=== PATIENT | female | born 1980 | race Hispanic/Latino ===

== ENCOUNTER 2019-07-24 18:00 | Inpatient (IN) | payer MEDICAID, OTHER, SELFPAY ==
[2019-07-24] MEDS: Lactated Ringer's 1,000 ML IV SCH (19:44)
[2019-07-24 19:55] VITALS: BMI 33.1
[2019-07-24] MEDS ORDERED: Promethazine HCl 25 MG/ML VIAL IM PRN (21:09)
[2019-07-24] MEDS ORDERED: Ibuprofen 800 MG TAB PO PRN (21:09)
[2019-07-24] MEDS ORDERED: Acetaminophen 500 MG TAB PO PRN (21:09)
[2019-07-24] MEDS ORDERED: NS / Oxytocin 40 units/1000ml 1,000 ML IV PRN (21:09)
[2019-07-24] MEDS ORDERED: Lidocaine 1% (PF) 30 ML VIAL SC PRN (21:09)
[2019-07-24] MEDS ORDERED: Ondansetron PF 4 MG/2 ML Vial IVP PRN (21:09)
[2019-07-24] MEDS ORDERED: hydrALAZINE 20 MG/ML VIAL SLOW IVP PRN (21:09)
[2019-07-24] MEDS ORDERED: Butorphanol Tartrate 1 MG/ML VIAL SLOW IVP PRN (21:09)
--- NOTE | 2019-07-24 21:09 | PDOC.LDHP ---
Labor and Delivery H&P Chief complaint: scheduled induction HPI: Patient is a 39F @ 39.5 by 16wk sono presents for TOLAC. Patient denies vaginal bleeding or discharge. Reports of feeling some mild contractions yesterday, but not consistently and is not feeling any at this time. TOLAC risks/benefits were discussed with patient and she was agreeable and signed consent. An epidural was also discussed, and patient is considering it but does not want one at this time. Denies headaches, vision changes, cp, sob , abdominal pain, edema. PCP: Dre Due date: 07/26/19 Dating criteria: second trimester ultrasound Grav: 5 Para: 3 OB History Details: 1st : @ 40wga 2nd : @ 38wga 3rd : due to placenta previa 4th : spontaneous miscarriage Current complications: other (ama) Past Medical History: none Current medications: pre- vitamins, iron, other (diclegus) Previous surgical history: low tranverse CS Allergies/Adverse Reactions: Allergies Allergy/AdvReac Type Severity Reaction Status Date / Time No Known Allergies Allergy Verified 07/24/19 19:13 Social history: none - Physical Exam Vital signs reviewed and normal: yes General: NAD, resting Heart: RRR Lungs: nonlabored breathing Abdomen: NTTP Extremeties: no edema FHT: category 1, variability present [place] contractions every: intermittent - OB Labs Blood type: B RH: positive Antibody Screen: negative HIV: negative RPR: negative HEPSAg: negative 1 hour GCT: negative GBS: negative Rubella: immune - Assessment L&D Assessment: elective induction at term - Plan Plan: admit to L&D, labor augmentation if indicated, informed consent obtained -: Patient is a 39F @ 39.5wga here for TOLAC induction #TOLAC, sIUP #AMA -reactive strip -intermittent contractions, patient is not feeling them -no abdominal pain at this time -vss -GBS negative, PNL negative -11/17/2 @ 5233, failed balloon placement -will proceed with slow pitocin induction at this time Dispo: TOLAC induction, starting pitocin at this time, will continue to monitor and repeat cervical check in 2hrs Addendum - Attending - Attending Attestation Date/Time: 07/25/19 0028 I personally evaluated the patient and discussed the management with Dr. Cheek on 07/24/2019 I agree with the History, Examination, Assessment and Plan documented above with any addition or exceptions noted below - 39 yo @39.8 weeks admitted for induction/TOLAC. Denies any ctx, LOF, VB (+) FM POBHx: 2 TSVDs then Term C/S for placenta previa SVE /-2/post/med Category 1 FHTs [place] occ ctx A/P: 1) IUP@39.5 weeks for induction- attempted balloon placement but dislodged x 2 attempts. Will give trial of pitocin as repeat SVE exam after pt emptied her bladder is favorable. Category1 FHTs,
[2019-07-24 21:26] LABS: Hemoglobin 10.8 g/dL (12.0-16.0); Mean Corpuscular HGB CONC 34.1 g/dL (32.0-36.0); Mean Corpuscular Hemoglobin 29.5 pg (27.0-31.0); Mean Corpuscular Volume 86.6 fL (78.0-98.0); Mean Platelet Volume 7.5 fL (7.4-10.4); Platelet Count 230 thou/uL (130-400); RBC Distribution Width 13.9 % (11.5-14.5); Red Blood Cell (RBC) Count 3.64 mill/uL (4.20-5.40); White Blood Cell (WBC) Count 8.2 thou/uL (4.8-10.8)
[2019-07-24] MEDS ORDERED: NS w/ Oxytocin 10 units 500 ML IV SCH (22:00)
[2019-07-24 22:04] LABS: Syphilis Antibody Nonreactive (Nonreactive); Syphilis Antibody Index 0.05 S/CO (<1.00 Non-Reactive)
[2019-07-24 23:27] LABS: HBSAg Index 0.18 S/CO (0-0.99); Hep B Surf Ag Non-Reactive S/CO (NonReactive)
--- NOTE | 2019-07-25 00:33 | PDOC.LDPN ---
Labor & Delivery Progress Note - Subjective Subjective: comfortable - Objective General: NAD, resting, breathing through contractions SVE: 3.5/50/-2 @ 0006 FHT: variability present [place] contractions every: 3min - Assessment (1) Current Visit: Yes Status: Acute Plan: continue plan of care, pitocin for augmentation -: Patient is a 39F @ 39.6wga here for TOLAC induction #TOLAC, sIUP #AMA -reactive strip, possible variable decel and patient was checked at 0006, reactive strip after this point with no more decels -ctx q3min, pit@2 -no abdominal pain at this time -vss -GBS negative, PNL negative -3.5/50/-2 @ 0006 -will continue with slow pitocin induction at this time Dispo: TOLAC induction, continuing pitocin at this time with ctx q3min, will continue to monitor and repeat cervical check in 2hrs Plan of care discussed with Dr. Graves who is agreeable with the plan at this time. Addendum - Attending - Attending Attestation Date/Time: 07/25/19 0040 I personally evaluated the patient and discussed the management with Dr. Cheek I agree with the History, Examination, Assessment and Plan documented above with any addition or exceptions noted below - COntinue pitocin; Category 1 FHTs. [place]- q3 min.
[2019-07-25] MEDS: Lactated Ringer's 1,000 ML IV SCH ×2 (01:27→04:48)
--- NOTE | 2019-07-25 02:59 | PDOC.LDPN ---
Labor & Delivery Progress Note - Subjective Subjective: comfortable - Objective Vital signs reviewed and normal: yes General: NAD, resting Uterine fundus: tender to palpation SVE: /-2 FHT: category 1, variability present [place] contractions every: 2min - Assessment (1) Current Visit: Yes Status: Acute Plan: continue plan of care, pitocin for augmentation -: Patient is a 39F @ 39.6wga here for TOLAC induction #TOLAC, sIUP #AMA -reactive strip -ctx q2min, pit@4 -no abdominal pain at this time -vss -GBS negative, PNL negative -/-2 @ 0225 -will continue with slow pitocin induction at this time Dispo: TOLAC induction, continuing pitocin at this time with ctx q2min, will continue to monitor and repeat cervical check in 2hrs Plan of care discussed with Dr. Graves who is agreeable with the plan at this time.
[2019-07-25] MEDS ORDERED: Fentanyl 4 mcg/Bup 0.1% Cadd 100 ML ONE (04:15)
[2019-07-25] MEDS ORDERED: Promethazine HCl 25 MG/ML VIAL IM PRN (05:20)
[2019-07-25] MEDS ORDERED: Naloxone HCl 0.4 mg/ml Vial IVP PRN ×2 (05:20)
[2019-07-25] MEDS ORDERED: Lactated Ringer's 500 ML IV PRN (05:20)
[2019-07-25] MEDS ORDERED: Acetaminophen 325 MG TAB PO PRN (05:20)
[2019-07-25] MEDS ORDERED: diphenhydrAMINE 50 MG/ML VIAL IVP PRN (05:20)
[2019-07-25] MEDS ORDERED: Ondansetron PF 4 MG/2 ML Vial IVP PRN ×2 (05:20→10:24)
[2019-07-25] MEDS ORDERED: ePHEDrine/0.9% NaCl/PF SYRINGE 50 mg/10 ml SLOW IVP PRN (05:20)
[2019-07-25] MEDS ORDERED: Communication Order-Pharmacy FS SCH (05:30)
[2019-07-25] MEDS ORDERED: Fentanyl 4 mcg/Bupivacaine 0.1% Cassette 100 ML EPIDURAL SCH (05:30)
--- NOTE | 2019-07-25 06:18 | PDOC.LDPN ---
Labor & Delivery Progress Note - Subjective Subjective: comfortable - Objective Vital signs reviewed and normal: yes General: NAD, resting Uterine fundus: non tender SVE: 60/-2 FHT: category 1, variability present [place] contractions every: 2-3min - Assessment (1) Current Visit: Yes Status: Acute Plan: continue plan of care, pitocin for augmentation -: Patient is a 39F @ 39.6wga here for TOLAC induction #TOLAC, sIUP #AMA -reactive strip -ctx q2-3min, pit@5 -no abdominal pain at this time -vss -GBS negative, PNL negative -epidural at 0500 -60/-2 @ 0530 -will continue with slow pitocin induction at this time Dispo: TOLAC induction, continuing pitocin at this time with ctx q2-3min, will continue to monitor and repeat cervical check in 2hrs Plan of care discussed with Dr. Graves who is agreeable with the plan at this time.
--- NOTE | 2019-07-25 06:39 | PDOC.LDPN ---
Labor & Delivery Progress Note - Subjective Subjective: comfortable, no concerns - Objective Vital signs reviewed and normal: yes General: NAD, resting Uterine fundus: non tender Dilation: 5 Effacement: 50% Station: -2 FHT: category 1, variability present [place] contractions every: 3M Plan: continue plan of care, pitocin for augmentation -: Patient is a 39 y/o female @ 39.6W admitted to L&D for TOLAC IOL. 1. TOLAC, sIUP -/-2 @ 0530 -Pitocin @ 5 mU/min, CTX Q3M -Epidural placed @ 0500, pain currently well-controlled -Unremarkable physical exam -Maternal VSS -Cat 1 strip w/ FHTs in the 140s -GBS: Negative -PNL: Negative 2. AMA -See #1 -Moderate bleeding risk, L&D staff aware and currently monitoring Dispo: Patient is currently admitted to L&D for TOLAC IOL w/ Pitocin running @ 5mU/min and CTX Q3M. Will continue to monitor and repeat SVEs Q2H. Addendum - Attending - Attending Attestation Date/Time: 07/26/19 1263 Late entry. She was AROM'd and successfully went on to .
[2019-07-25] MEDS ORDERED: NS / Oxytocin 40 units/1000ml 1,000 ML IV SCH (10:24)
[2019-07-25] MEDS ORDERED: Lanolin Ointment 7 GM TUBE TOP PRN (10:24)
[2019-07-25] MEDS ORDERED: Bisacodyl 10 MG SUPP PR PRN (10:24)
[2019-07-25] MEDS ORDERED: hydrALAZINE 20 MG/ML VIAL SLOW IVP PRN (10:24)
[2019-07-25] MEDS ORDERED: Benzocaine-Menthol 82.5 ML CAN TOP PRN (10:24)
[2019-07-25] MEDS ORDERED: Milk Of Magnesia 30 ML UDCUP PO PRN (10:24)
[2019-07-25] MEDS ORDERED: Preparation H Ointment 28 GM TUBE PR PRN (10:24)
[2019-07-25] MEDS ORDERED: diphenhydrAMINE 25 MG CAP PO PRN (10:24)
[2019-07-25] MEDS: Ibuprofen 800 MG TAB PO SCH ×3 (14:04→22:41)
[2019-07-25] MEDS: Ferrous Sulfate 325 MG TAB PO SCH (18:37)
[2019-07-25] MEDS: Docusate Calcium (SURFAK) 240 MG CAP PO SCH (22:41)
--- NOTE | 2019-07-26 05:02 | DN ---
DATE OF PROCEDURE: 07/25/2019 DELIVERING PHYSICIANS: Dr. Rajan Mariee and Dr. Ana Joseph. PROCTORING PHYSICIAN: Dr. Joce Rogers. PROCEDURE PERFORMED: Vaginal after section. ANESTHESIA: Epidural. ESTIMATED BLOOD LOSS: 150 mL. QUANTITATIVE BLOOD LOSS: Pending at this time. PREPROCEDURE DIAGNOSES: 1. Term elective induction. 2. Advanced maternal age. 3. Prior section x1. 4. Prior spontaneous vaginal delivery x2. POSTPROCEDURE DIAGNOSIS: 1. Term elective induction, delivered 2. Advanced maternal age. 3. Prior section x1. 4. Prior spontaneous vaginal delivery x2. INDICATIONS: Ms. Gonzalez is a pleasant 39-year-old, G5, P3-0-1-3 at 39.6 weeks, dated by 16.0 weeks' ultrasound who presented for elective induction of labor. DESCRIPTION OF PROCEDURE: After an uneventful antepartum course, the patient delivered a vigorous male infant at 0854 hours in the occiput anterior position. Anterior shoulder and remainder of body were then delivered without complications. Delayed cord clamping was utilized before the cord was clamped and cut and the infant was handed to the patient's mother. Cord blood was collected. Placenta delivered spontaneously shortly after delivery of the . Fundus was massaged and found to be firm. The cervix was inspected, noted to have two small hemostatic abrasions at the 1 o'clock and 11 o'clock positions. The vagina was inspected and found to have a small bleeding first-degree perineal laceration which was reapproximated with one [id number] stitch and one simple interrupted suture using 3-0 Vicryl. The uterus was again inspected and two small clots were removed from the lower uterine segment. Counts were correct x2. The baby's Apgars were 8 and 9 at one and five minutes respectively. The patient went to after routine recovery and care. Infant went to the well nursery. FINDINGS: Grossly normal viable male infant. Intact placenta with three-vessel cord discarded. Cord blood was collected and sent. Job ID: [id number] MTDD
[2019-07-26] MEDS: Ibuprofen 800 MG TAB PO SCH ×2 (05:54→14:14)
--- NOTE | 2019-07-26 06:34 | PDOC.PP ---
Post Progress Note Post Day #: 1 Subjective: Mrs. Gonzalez was resting comfortably and holding her baby with her at bedside at the time of evaluation. She denied any acute overnight events, with the exception of mild abdominal pain which responded well to Motrin. She has been tolerating PO intake well, has been urinating without difficulty and ambulating around her room without difficulty. PO intake tolerated: yes Flatus: yes Ambulation: yes Vital Signs (12 hours) Temp Pulse Resp BP Pulse Ox 07/26/19 04:12 97.8 F 80 18 88/50 L 07/26/19 00:15 98.1 F 82 18 94/49 L 07/25/19 19:58 99.2 F 92 20 92/51 L 95 07/25/19 18:42 93/51 L Weight Weight 64.682 kg - Physical Examination General: NAD Cardiovascular: no m/r/g, RRR Respiratory: clear to auscultation bilaterally, non-labored breathing Abdominal: lochia, appropriately TTP Fundus firm & at: Below umbilicus Extremities: negative homans (B) Skin: no rash Perineum: Scant bleeding, pad in place Neurological: no gross focal deficits Psychiatric: normal affect Result Diagrams: 07/24/19 21:15 Additional Labs: Post Labs Blood Type B POSITIVE 07/24/19 22:15 Hep Bs Antigen Non-Reactive S/CO (NonReactive) 07/24/19 21:15 - Assessment/Plan Patient is a 39 y/o female who delivered via @ 39.6W. 1. , sIUP -Delivered a TAGA M @ 0854 on 07/26/19 - 1st Degree lac -GBS: Negative -Physical exam unremarkable - pain adequately controlled, tolerating PO intake well -Milk letdown pending - currently feeding with formula -Does not require circ for baby -Ensure appropriate PP follow-up prior to DC 2. AMA -See #1 -Moderate bleeding risk, [facility] staff aware and currently monitoring - likelihood of bleed appears low at this time Dispo: Patient is currently admitted to [facility] for routine care. Plan for DC pending TBili(36). Expected LOS < 24H. Addendum - Attending - Attending Attestation Date/Time: 07/26/19 3730 I personally evaluated the patient and discussed the management with Dr. Ferrer. I agree with the History, Examination, Assessment and Plan documented above with any addition or exceptions noted below. Plan for dc today.
[2019-07-26] MEDS: Ferrous Sulfate 325 MG TAB PO SCH (07:22)
[2019-07-26] MEDS: Docusate Calcium (SURFAK) 240 MG CAP PO SCH (08:48)
[2019-07-26] MEDS ORDERED: Prenatal Vitamin 1 TAB PO SCH (09:00)
[2019-07-26] MEDS ORDERED: Adacel (T-DAP) 0.5 ML SYRINGE IM ONE (10:24)
[2019-07-26 12:08] VITALS: BP 86/50; TEMP 98.4
== END 2019-07-26 14:25 | disposition home or self-care (01) | DRG 807 ==
LOC: L&D 18:36 → 3SW 07-25 11:30
PROVIDERS: ADMIT Emergency Medicine; ATTEND Emergency Medicine
PROC: 10E0XZZ Delivery of Products of Conception, External Approach (ICD-10-PCS; principal; 2019-07-25)
PROC: 0HQ9XZZ Repair Perineum Skin, External Approach (ICD-10-PCS; 2019-07-25)
PROC: 3E033VJ Introduction of Other Hormone into Peripheral Vein, Percutaneous Approach (ICD-10-PCS; 2019-07-25)
DX: O70.0 First degree perineal laceration during delivery (principal); Z37.0 Single live birth; Z3A.39 39 weeks gestation of pregnancy
CPT/HCPCS: 36415; 51702; 85027; 86780; 86850; 86900; 86901; 87340; C1726; J2405; J2590